=== PATIENT | male | born 1960 | race African-American/Black ===

== ENCOUNTER 2024-09-06 05:25 | Inpatient (IN) | payer BC, OTHER ==
[~2024-09-06] VITALS: Ht 180.3 cm; Wt 126.8 kg
--- NOTE | 2024-09-06 06:42 | ED.PDOC ---
Musculoskeletal HPI Comments 63 year old male presents to the ED with a chief complaint of LT hip pain onset 2 weeks. Patient states he has been experiencing LT hip pain radiating to thigh and calf for the past 2 weeks. He saw PCP, had XR, blood work done but has not gotten results. Patient was seen at urgent care and was sent to ED to rule out DVT. PMHx DM. Denies fall, injury, chest pain, shortness of breath, headache, dizziness, nausea, vomiting, diarrhea, fever, chills. No other symptoms or modifying factors present at this time. Chief Complaint: Lower Extremity Time Seen by MD: 06:30 Reviewed Notes: Medications, Allergies Allergies: Coded Allergies: NO KNOWN ALLERGIES (Unverified , 09/06/24) Information Source: Patient, Spouse Mode of Arrival: Ambulatory Location: Left Extremity Location: Calf, Femur, Hip, Leg Timing: Weeks Prehospital treatment: Pain Meds Severity: Moderate Able to Move Extremity: Yes Bear Weight: Limited Pain: Moderate Mechanism: Spontaneous Circumstances: Spontaneous Onset of Symptoms: Spontaneous Symptoms: Pain DVT Risk Factors: NONE Associated signs and symptoms: Thigh pain, Hip pain Past Medical History PAST MEDICAL HISTORY: DM Surgical History: Hernia Repair Family History Family History: Reviewed,noncontributory to illness, No family hx of Cancer, No family hx of DM, No family hx of Heart mack, No family hx of HTN, No family hx ofKidney mack, No family hx of Liver mack, No family hx of Lung mack, No family hx of Stroke Social History Smoker: Non-Smoker Alcohol: Denies ETOH Use Drugs: Denies Drug Use Lives In: Home Constitutional: denies: chills, diaphoresis, fatigue, fever, malaise, sweats, weakness, others EENTM: denies: blurred vision, double vision, ear bleeding, ear discharge, ear drainage, ear pain, ear ringing, eye pain, eye redness, hearing loss, mouth pain, mouth swelling, nasal discharge, nose bleeding, nose congestion, nose pain, photophobia, tearing, throat pain, throat swelling, voice changes, others Respiratory: denies: cough, hemoptysis, orthopnea, SOB at rest, shortness of breath, SOB with excertion, stridor, wheezing, others Cardiovascular: denies: chest pain, dizzy spells, diaphoresis, Dyspnea on exertion, edema, irregular heart beat, left arm pain, lightheadedness, palpitations, PND, syncope, others Gastrointestinal: denies: abdomen distended, abdominal pain, blood streaked bowels, constipated, diarrhea, dysphagia, difficulty swallowing, hematemesis, melena, nausea, poor appetite, poor fluid intake, rectal bleeding, rectal pain, vomiting, others Genitourinary: denies: burning, dysuria, flank pain, frequency, hematuria, incontinence, penile discharge, penile sore, pain, testicle pain, testicle swelling, urgency, others Neurological: denies: dizziness, fainting, headache, left sided numbness, left sided weakness, numbness, paresthesia, pre-existing deficit, right sided numbness, right sided weakness, seizure, speech problems, tingling, tremors, weakness, others Musculoskeletal: reports: joint pain, others (LT hip pain, LT thigh pain, LT ca lf pain); denies: back pain, gout, joint swelling, muscle pain, muscle stiffness, neck pain Integumetry: denies: bruises, change in color, change in hair/nails, dryness, laceration, lesions, lumps, rash, wounds, others Allergic/Immunocompromised: denies: Difficulty Healing, Frequent Infections, Hives, Itching, others Hematologic/Lymphatic: denies: anemia, blood clots, easy bleeding, easy bruising, swollen glands, others Endocrine: denies: excessive hunger, excessive sweating, excessive thirst, excessive urination, flushing, intolerance to cold, intolerance to heat, unexplained weight gain, unexplained weight loss, others Psychiatric: denies: anxiety, bipolar disorder, depression, hopeless, panic disorder, schizophrenia, sleepless, suicidal, others All Other Systems: Reviewed and Negative Physical Exam General Appearance: Moderate Distress, Normal HEENT: Normal ENT Inspection, Pharynx Normal, TMs Normal Neck: Full Range of Motion, Non-Tender, Normal, Normal Inspection Respiratory: Chest Non-Tender, Lungs Clear, No Accessory Muscle Use, No Respiratory Distress, Normal Breath Sounds Cardiovascular: No Edema, No JVD, No Murmur, No Gallop, Normal Peripheral Pulses, Regular Rate/Rhythm Breast Exam: Deferred Gastrointestinal: No Organomegaly, Non Tender, No Pulsatile Mass, Normal Bowel Sounds, Soft Genitalia: Deferred Pelvic: Deferred Rectal: Deferred Extremities: No calf tenderness, Normal capillary refill, Normal inspection, Normal range of motion, Non-tender, No pedal edema Musculoskeletal : Apperance: Normal Neurologic: Alert, 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 Was a procedure done?: No Differential Diagnosis EXT Differential Diagnosis: Sprain X-Ray, Labs, Meds, VS Vital Signs Date Time Temp Pulse Resp B/P (MAP) Pulse Ox O2 Delivery O2 Flow Rate FiO2 09/06/24 08:00 76 09/06/24 08:00 77 12 137/82 (100) 96 09/06/24 07:42 97.9 81 10 141/74 (96) 93 97.9 09/06/24 07:40 74 16 94 Room Air* 0 21 09/06/24 06:58 69 18 98 Room Air* 0 21 09/06/24 06:50 97.8 64 20 131/94 (106) 93 97.8 09/06/24 05:43 97.6 93 18 148/86 (106) 95 97.6 09/06/24 05:30 97.6 93 18 148/86 (106) 95 97.6 Lab Test 09/06/24 06:56 Range/Units White Blood Count 10.7 4.4-10.8 10^3/uL Red Blood Count 5.66 4.5-5.90 10^6/uL Hemoglobin 15.5 13.5-17.5 g/dL Hematocrit 44.4 41.0-53.0 % Mean Corpuscular Volume 78.5 L 80.0-100.0 fL Mean Corpuscular Hemoglobin 27.4 L 28.0-32.0 pg Mean Corpuscular Hemoglobin Concent 34.9 32.0-36.0 g/dL Red Cell Distribution Width 15.2 H 11.8-14.3 % Platelet Count 231 140-450 10^3/uL Mean Platelet Volume 7.7 6.9-10.8 fL Neutrophils (%) (Auto) 63.3 37.0-80.0 % Lymphocytes (%) (Auto) 24.2 10.0-50.0 % Monocytes (%) (Auto) 10.7 0.0-12.0 % Eosinophils (%) (Auto) 1.1 0.0-7.0 % Basophils (%) (Auto) 0.7 0.0-2.0 % Neutrophils # (Auto) 6.8 1.6-8.6 10 ^3/uL Lymphocytes # (Auto) 2.6 0.4-5.4 10 ^3/uL Monocytes # (Auto) 1.2 0-1.3 10 ^3/uL Eosinophils # (Auto) 0.1 0-0.8 10 ^3/uL Basophils # (Auto) 0.1 0-0.2 10 ^3/uL Nucleated Red Blood Cells 0.1 % Sodium Level 137 136-145 mmol/L Potassium Level 4.7 3.5-5.1 mmol/L Chloride Level 106 98-107 mmol/L Carbon Dioxide Level 22 20-31 mmol/L Anion Gap 9 5-15 Blood Urea Nitrogen 25 H 9-23 mg/dL Creatinine 1.00 0.700-1.30 mg/dL Glomerular Filtration Rate Calc 85 >90 mL/min BUN/Creatinine Ratio 25.0 H 10.0-20.0 Serum Glucose 194 H 74-106 mg/dL Calcium Level 9.4 8.7-10.4 mg/dL Current Medications Medications (Trade) Dose Ordered Sig/Scot Route Start Time Stop Time Status Last Admin Ketorolac Tromethamine (Toradol Injection) 60 mg ONCE ONCE IM 09/06/24 06:45 09/06/24 06:46 DC 09/06/24 06:49 Acetaminophen/ Hydrocodone Bitart ([place] 10/325MG Tab) 1 tab ONCE ONCE PO 09/06/24 06:45 09/06/24 06:46 DC 09/06/24 06:50 Patient alert. Complaining of left lower extremity pain. No leg swelling. Vitals stable. Answering all questions. Possible osteoarthritis of the left hip. Possible degenerative disc disease of the lumbar spine. Possibly will need MRI. Explained to the patient. Continue cardiac monitoring. Was given Toradol. Was given [place]. Continues to have pain. [facility] [id number] [place] [id number] Ph: [phone] DIAGNOSTIC IMAGING Diagnostic Imaging Report : [id number] Signed PATIENT: ALYSHA COX ACCT: [id number] UNIT: [id number] : 1960 LOC: ER ROOM / BED: / AGE / SEX: 63 / M ADM STATUS: REG ER SERVICE 8 ORDERING PHYSICIAN: JELENA MOON MD PROCEDURE(s): LS2CT - LS SPINE WO CONTRAST REASON: degen ORDER NUMBER(s): [id number], ACCESSION NUMBER(s): [id number] CLINICAL INDICATION: 63 years old, Male; degen. TECHNIQUE: CT of the lumbar spine was performed without intravenous contrast. Sagittal and coronal reformatted images are provided. All CT scans at this medical facility are performed using dose modulation techniques as appropriate to a performed exam including the following: Automated exposure control was utilized; adjustment of the MA and/or KV according to patient size; and use of iterative reconstruction technique. COMPARISON: None CT Dose: CTDI volume is 37.9 mGy. Dose-length product is 1372.9 mGy*cm FINDINGS: The alignment and curvature of the lumbar spine are preserved. The vertebral bodies are normal in height. Mild intervertebral disc space narrowing and broad-based posterior disc bulge at L4-L5. No significant spinal stenosis. No significant neural foraminal stenosis. The prevertebral soft tissues are unremarkable. Paraspinal muscles are also within normal limits. IMPRESSION: 1. No fracture or malalignment in the lumbar spine. ATED BY: MARIA DEL ROSARIO ROCHA MD DICTATED DATE/TIME: 09/06/24805 SIGNED BY: MARIA DEL ROSARIO ROCHA MD SIGNED DATE/TIME: 09/06/24805 CC: [place] [id number] Ph: [phone] DIAGNOSTIC IMAGING Diagnostic Imaging Report : [id number] Signed PATIENT: ALYSHA COX ACCT: [id number] UNIT: [id number] : 1960 LOC: ER ROOM / BED: / AGE / SEX: 63 / M ADM STATUS: REG ER SERVICE 8 ORDERING PHYSICIAN: JELENA MOON MD PROCEDURE(s): PL2CT - PELVIS WO CONTRAST REASON: degen ORDER NUMBER(s): [id number], ACCESSION NUMBER(s): [id number] Exam: CT PELVIS WO CONTRAST History: degen Comparison Study: None available at time of dictation. TECHNIQUE: Multidetector CT of the abdomen and pelvis was performed from lung bases to ischial tuberosities. Imaging was performed without IV contrast using axial images. Coronal and sagittal reformats were obtained from the axial data set by the technologist. Radiation Dose Information: CT Dose: CTDI volume is 37.9 mGy. Dose-length product is 1372.9 mGy*cm FINDINGS: Evaluation of solid organs is limited due to lack of intravenous contrast use. Findings: Bones: No acute pelvic bone fracture. Degenerative changes in the lower lumbar spine. Soft tissues: The soft tissues are unremarkable. No soft tissue mass or fluid collection. Circumferential wall thickening versus underdistention of the urinary bladder. Bilateral fat containing inguinal hernias. IMPRESSION: 1. No acute pelvic fracture. 2. Circumferential wall thickening versus underdistention of the urinary bladder. Cystitis should be excluded. Radiation optimization: All CT scans at this facility use at least one of these dose optimization techniques: automated exposure control mA and/or kV adjustment per patient size (includes targeted exams where dose is matched to clinical indication) or iterative reconstruction. ATED BY: MARIA DEL ROSARIO ROCHA MD DICTATED DATE/TIME: 09/06/24808 SIGNED BY: MARIA DEL ROSARIO ROCHA MD SIGNED DATE/TIME: 09/06/24808 CC: Time of 1ST Reevaluation: 07:00 Reevaluation 1ST: Unchanged Patient Education/Counseling: Diagnosis, Treatment, Prognosis Family Education/Counseling: Diagnosis, Treatment, Prognosis Additional Information The following tests were ordered, and results were reviewed by me: CBC, BMP, CT PELVIS WO CONTRAST, LS SPINE WO CONTRAST Additional Information was gathered from interviewing the following independent historians: I reviewed and agreed with the following test results read by other providers: CT PELVIS WO CONTRAST, LS SPINE WO CONTRAST I discussed treatment and results with medical personnel and: Patient, Comprehensive systems review obtained and negative except for what is stated in the HPI. Departure 1 Departure Time of Disposition: 06:51 Impression: Primary Impression: Degenerative disc disease Qualified Codes: M51.369 - Other intervertebral disc degeneration, lumbar region without mention of lumbar back pain or lower extremity pain Disposition: ADMITTED INPATIENT Admit to: Med Surg Condition: Guarded Critical Care Note Critical Care Time?: No Stability Stability form required: No Heart Score Heart Score: Heart Score Response (Comments) Value History N/A 0 EKG N/A 0 Age N/A 0 Risk Factors N/A 0 Troponin N/A 0 Total 0 I personally scribed for JELENA MOON MD ([email or web address]) on 09/06/24 at 06:42. Electronically submitted by Omar Gustafson ([email or web address]). I personally scribed for JELENA MOON MD ([email or web address]) on 09/06/24 at 07:50. Electronically submitted by Omar Gustafson ([email or web address]). I personally scribed for JELENA MOON MD ([email or web address]) on 09/06/24 at 08:58. Electronically submitted by Pati Pugh ([email or web address]). JELENA MOON MD Sep 06, 2024 06:42
[2024-09-06] MEDS: KETOROLAC TROMETH 60MG/2ML VIAL IM ONE (06:49)
[2024-09-06] MEDS: HYDROcodone-ACET 10/325MG TAB PO ONE (06:50)
[2024-09-06 06:58] VITALS: PULSE 69; RESP 18; O2SAT 98
[2024-09-06 07:05] LABS: Basophils # (auto) 0.1 10 ^3/uL (0-0.2); Basophils % (auto) 0.7 % (0.0-2.0); Eosinophils # (auto) 0.1 10 ^3/uL (0-0.8); Monocytes # (auto) 1.2 10 ^3/uL (0-1.3); Neutrophils # (auto) 6.8 10 ^3/uL (1.6-8.6); Nucleated Red Blood Cells % 0.1 %
[2024-09-06 07:06] LABS: Eosinophils % (auto) 1.1 % (0.0-7.0); Hematocrit 44.4 % (41.0-53.0); Hemoglobin 15.5 g/dL (13.5-17.5); Lymphocytes # (auto) 2.6 10 ^3/uL (0.4-5.4); Lymphocytes % (auto) 24.2 % (10.0-50.0); Mean Corpuscular Hemoglobin 27.4 pg (28.0-32.0); Mean Corpuscular Hgb Conc. 34.9 g/dL (32.0-36.0); Mean Corpuscular Volume 78.5 fL (80.0-100.0); Monocytes % (auto) 10.7 % (0.0-12.0); Neutrophils % (auto) 63.3 % (37.0-80.0); Platelet Count (auto) 231 10^3/uL (140-450); Red Blood Cells 5.66 10^6/uL (4.5-5.90); Red Cell Distribution Width 15.2 % (11.8-14.3); White Blood Cell 10.7 10^3/uL (4.4-10.8)
[2024-09-06 07:15] LABS: Chloride 106 mmol/L (98-107); Potassium 4.7 mmol/L (3.5-5.1); Sodium 137 mmol/L (136-145)
[2024-09-06 07:16] LABS: Anion Gap 9 (5-15); Calcium 9.4 mg/dL (8.7-10.4); Carbon Dioxide 22 mmol/L (20-31)
[2024-09-06 07:22] LABS: Blood Urea Nitrogen 25 mg/dL (9-23); Glucose 194 mg/dL (74-106)
[2024-09-06 07:40] VITALS: PULSE 74; RESP 16; O2SAT 94
--- NOTE | 2024-09-06 08:09 | DVH ---
CLINICAL INDICATION: 63 years old, Male; degen. TECHNIQUE: CT of the lumbar spine was performed without intravenous contrast. Sagittal and coronal re formatted images are provided. All CT scans at this medical facility are performed using dose modula tion techniques as appropriate to a performed exam including the following: Automated exposure contro l was utilized; adjustment of the MA and/or KV according to patient size; and use of iterative recons truction technique. COMPARISON: None CT Dose: CTDI volume is 37.9 mGy. Dose-length product is 1372.9 mGy*cm FINDINGS: The alignment and curvature of the lumbar spine are preserved. The vertebral bodies are normal in hei ght. Mild intervertebral disc space narrowing and broad-based posterior disc bulge at L4-L5. No sign ificant spinal stenosis. No significant neural foraminal stenosis. The prevertebral soft tissues are unremarkable. Paraspinal muscles are also within normal limits. IMPRESSION: 1. No fracture or malalignment in the lumbar spine.
--- NOTE | 2024-09-06 08:11 | DVH ---
Exam: CT PELVIS WO CONTRAST History: degen Comparison Study: None available at time of dictation. TECHNIQUE: Multidetector CT of the abdomen and pelvis was performed from lung bases to ischial tubero sities. Imaging was performed without IV contrast using axial images. Coronal and sagittal reformats were obtained from the axial data set by the technologist. Radiation Dose Information: CT Dose: CTDI volume is 37.9 mGy. Dose-length product is 1372.9 mGy*cm FINDINGS: Evaluation of solid organs is limited due to lack of intravenous contrast use. Findings: Bones: No acute pelvic bone fracture. Degenerative changes in the lower lumbar spine. Soft tissues: The soft tissues are unremarkable. No soft tissue mass or fluid collection. Circumferen tial wall thickening versus underdistention of the urinary bladder. Bilateral fat containing inguina l hernias. IMPRESSION: 1. No acute pelvic fracture. 2. Circumferential wall thickening versus underdistention of the urinary bladder. Cystitis should be excluded. Radiation optimization: All CT scans at this facility use at least one of these dose optimization loree hniques: automated exposure control mA and/or kV adjustment per patient size (includes targeted exam s where dose is matched to clinical indication) or iterative reconstruction.
[2024-09-06] MEDS ORDERED: ONDANSETRON HCL 4 MG/2 ML VIAL IV PRN (09:45)
[2024-09-06] MEDS ORDERED: HYDROcodone-ACET 5/325MG TAB PO PRN (09:45)
[2024-09-06] MEDS ORDERED: ACETAMINOPHEN 325 MG TAB PO PRN (09:45)
[2024-09-06] MEDS ORDERED: DOCUSATE SOD 100 MG CAP PO PRN (09:45)
--- NOTE | 2024-09-06 09:51 | DVHHP2 ---
History of Present Illness Reason for Visit: left hip pain History of Present Illness Kobe Robles is a 63-year-old male with past medical history of diabetes, who came in due to left lip/buttock pain. Patient states the pain started about 2 weeks ago. He went to his primary care provider and had a hip x-ray completed on 08/31/2024, and receive a shot of Toradol in the office, with no relief. He went to urgent care a few days later and received a shot of Solu Medrol and he had relief for about 24 hours. Patient states the pain returned with a severity of 10/10. He has not been able to sleep, sit comfortably, or focus to work. Endocrine: Diabetes Past Surgical History: Hernia Repair, Other (knee) Smoke: No ALCOHOL: rare Drugs: None Lives: with Family Domestic Violence: Neg Review of Systems Constitutional: No: Fever, Chills, Sweats, Weakness, Malaise, Other Eyes: No: Pain, Vision change, Conjunctivae inflammation, Eyelid inflammation, Other, Redness ENT: No: Ear pain, Ear discharge, Nose pain, Nose discharge, Nose congestion, Mouth pain, Mouth swelling, Throat pain, Throat swelling, Other Respiratory: No: Cough, Dry, Shortness of breath, SOB with excertion, Wheezing, Hemoptysis, Pleuritic Pain, Sputum, Wheezing, Other Cardiovascular: No: Chest Pain, Palpitations, Orthopnea, Paroxysmal Noc. Dyspnea, Edema, Lt Headedness, Other Gastrointestinal: No: Nausea, Vomiting, Abdominal Pain, Diarrhea, Constipation, Melena, Hematochezia, Other Genitourinary: No Dysuria, No Frequency, No Incontinence, No Hematuria, No Retention, No Other Musculoskeletal: leg pain (left hip/left buttock radiating down his leg to his knee); No: other, neck pain, shoulder pain, arm pain, back pain, hand pain, foot pain Skin: No: Rash, Lesions, Jaundice, Bruising, Other Neurological: Weakness, Other (left hip pain, difficult walking); No: Numbness, Incoordination, Change in speech, Confusion, Seizures Allergies: Coded Allergies: NO KNOWN ALLERGIES (Unverified , 09/06/24) Exam Vital Signs Vital Signs Date Time Temp Pulse Resp B/P (MAP) Pulse Ox O2 Delivery O2 Flow Rate FiO2 09/06/24 08:00 76 09/06/24 08:00 12 137/82 (100) 96 09/06/24 07:42 97.9 97.9 09/06/24 07:40 Room Air* 0 21 General Appearance: Alert, Oriented X3, Cooperative, moderate distress HEENT: Atraumatic, PERRLA Respiratory: Clear to auscultation, Normal air movement Cardiovascular: Regular rate, Normal S1, Normal S2, No murmurs Abdominal: Normal bowel sounds, Soft, No tenderness, No hepatospenomegaly Extremities: No clubbing, No cyanosis, No edema, Normal pulses Skin: No rashes, No breakdown, No significant lesion Neuro: Normal speech, Strength at 5/5 X4 ext, Other (Pain with ambulation, and pain with sitting) Psych/Mental Status: Mental status NL, Mood NL Labs/Xrays Labs Test 09/06/24 06:56 Range/Units White Blood Count 10.7 4.4-10.8 10^3/uL Red Blood Count 5.66 4.5-5.90 10^6/uL Hemoglobin 15.5 13.5-17.5 g/dL Hematocrit 44.4 41.0-53.0 % Mean Corpuscular Volume 78.5 L 80.0-100.0 fL Mean Corpuscular Hemoglobin 27.4 L 28.0-32.0 pg Mean Corpuscular Hemoglobin Concent 34.9 32.0-36.0 g/dL Red Cell Distribution Width 15.2 H 11.8-14.3 % Platelet Count 231 140-450 10^3/uL Mean Platelet Volume 7.7 6.9-10.8 fL Neutrophils (%) (Auto) 63.3 37.0-80.0 % Lymphocytes (%) (Auto) 24.2 10.0-50.0 % Monocytes (%) (Auto) 10.7 0.0-12.0 % Eosinophils (%) (Auto) 1.1 0.0-7.0 % Basophils (%) (Auto) 0.7 0.0-2.0 % Neutrophils # (Auto) 6.8 1.6-8.6 10 ^3/uL Lymphocytes # (Auto) 2.6 0.4-5.4 10 ^3/uL Monocytes # (Auto) 1.2 0-1.3 10 ^3/uL Eosinophils # (Auto) 0.1 0-0.8 10 ^3/uL Basophils # (Auto) 0.1 0-0.2 10 ^3/uL Nucleated Red Blood Cells 0.1 % Sodium Level 137 136-145 mmol/L Potassium Level 4.7 3.5-5.1 mmol/L Chloride Level 106 98-107 mmol/L Carbon Dioxide Level 22 20-31 mmol/L Anion Gap 9 5-15 Blood Urea Nitrogen 25 H 9-23 mg/dL Creatinine 1.00 0.700-1.30 mg/dL Glomerular Filtration Rate Calc 85 >90 mL/min BUN/Creatinine Ratio 25.0 H 10.0-20.0 Serum Glucose 194 H 74-106 mg/dL Calcium Level 9.4 8.7-10.4 mg/dL Lumbar/Spine CT FINDINGS: The alignment and curvature of the lumbar spine are preserved. The vertebral bodies are normal in height. Mild intervertebral disc space narrowing and broad- based posterior disc bulge at L4-L5. No significant spinal stenosis. No significant neural foraminal stenosis. The prevertebral soft tissues are unremarkable. Paraspinal muscles are also within normal limits. IMPRESSION: 1. No fracture or malalignment in the lumbar spine. Exam: CT PELVIS WO CONTRAST FINDINGS: Evaluation of solid organs is limited due to lack of intravenous contrast use. Findings: Bones: No acute pelvic bone fracture. Degenerative changes in the lower lumbar spine. Soft tissues: The soft tissues are unremarkable. No soft tissue mass or fluid collection. Circumferential wall thickening versus underdistention of the urinary bladder. Bilateral fat containing inguinal hernias. IMPRESSION: 1. No acute pelvic fracture. 2. Circumferential wall thickening versus underdistention of the urinary bladder. Cystitis should be excluded. Assessment/Plan Assessment/Plan Assessment: Sciatic nerve pain, Intractable pain, Hypertension, Diabetes, Plan: Admit to Med-Surg, Orthopedic consult, IV steroids, Pain management, Accu checks Q AC&HS with sliding scale, A1c, Plan discussed with: Patient, Spouse My Orders Orders - FAVIO MCNAIR Procedure Category Date Status Time Admit ADMIT 09/06/24 Verified 09:36 Code Status CODE 09/06/24 Verified 09:36 2 Gm Sodium Diet DIET 09/06/24 Verified Lunch Sodium Chloride Lock PHA 09/06/24 Verified (Saline Lock Ns) 14:00 Hydrocodone-Acet PHA 09/06/24 Verified 5/325mg Tab (Alex 09:45 Ondansetron Hcl PHA 09/06/24 Verified (Zofran) 09:45 Docusate Sodium PHA 09/06/24 Verified Capsule (Colace 09:45 Complete Blood Count LAB 09/07/24 Verified 04:00 Comprehensive LAB 09/07/24 Verified Metabolic Panel 04:00 Condition: Serious SHAYY 09/06/24 Verified 09:36 Acetaminophen Tablet PHA 09/06/24 Verified (Tylenol Tablet) 09:45 * Orthopedic Consult CONS 09/06/24 Verified 09:36 Methylprednisolone PHA 09/06/24 Verified Sod Succ (Solu Medrol 10:00 Date of Service: Sep 06, 2024 Billing Provider: FAVIO MCNAIR Common Visit Codes: 11916-PERVRKM INP/OBS CARE (MOD) FAVIO MCNAIR Sep 06, 2024 09:51
[2024-09-06] MEDS: methylPREDNISolone SOD SUCC 40 MG/ML VL IV SCH (10:12)
[2024-09-06] MEDS ORDERED: DEXTROSE (50%) 50ML SYRG IV PRN (10:30)
[2024-09-06] MEDS ORDERED: INS7030I SC (11:03)
[2024-09-06] MEDS ORDERED: ALBU1AER6 IN (11:05)
[2024-09-06] MEDS: InsuLIN REG 1unit/0.01ml Soln (100units/ml) SC SCH (11:30)
[2024-09-06] MEDS: ACCU-CHEK COMFORT CURVE STRIP VI SCH (11:30)
[2024-09-06 13:00] VITALS: BP 135/78; PULSE 87; RESP 14; TEMP 97.5; O2SAT 97
[2024-09-06] MEDS: SODIUM CHLOR 0.9% PF (SALINE LOCK) 10ML VIAL/SYR IV SCH (14:00)
[2024-09-06] MEDS ORDERED: InsuLIN REG 1unit/0.01ml Soln (100units/ml) SC SCH (22:00)
== END 2024-09-06 16:00 | disposition left against medical advice (07) | DRG 552 ==
LOC: ER 05:25 → OVERFLOW 09:36
PROVIDERS: ADMIT Nurse Practitioner Family; ATTEND Nurse Practitioner Family
DX: M54.32 Sciatica, left side (principal); I10 Essential (primary) hypertension; Z53.29 Procedure and treatment not carried out because of patient's decision for other reasons; E11.9 Type 2 diabetes mellitus without complications; M51.369 Other intervertebral disc degeneration, lumbar region without mention of lumbar back pain or lower extremity pain; Z79.899 Other long term (current) drug therapy
CPT/HCPCS: 36415; 72131; 72192; 80048; 82962; 83036; 85025; 96372; G0378; J1885